=== PATIENT | female | born 1990 | race Caucasian/White ===

== ENCOUNTER → 2020-09-11 00:58 | Outpatient (CLI) | payer OTHER, SELFPAY ==
[2020-09-11 19:48] LABS: SARS-CoV-2 RNA PCR Negative
== END ==
PROVIDERS: Anesthesiology; PCP Nurse Practitioner Psychiatric/Mental Health; Visit Provider Obstetrics & Gynecology
DX: Z01.812 Encounter for preprocedural laboratory examination (principal); Z20.822 Contact with and (suspected) exposure to COVID-19
CPT/HCPCS: C9803; U0003; U0005

== ENCOUNTER 2020-09-15 00:43 | Day surgery (SDC) | payer OTHER, SELFPAY ==
[2020-09-08 14:38] VITALS: BMI 31.1
[2020-09-15] VITALS (7 sets, daily range): BP systolic 100–131; BP diastolic 61–80; PULSE 62–102; RESP 12–20; TEMP 36.1–36.2; O2SAT 100
[2020-09-15] MEDS: ACETAMINOPHEN 500 MG TABLET 1000 MG PO (06:49)
[2020-09-15] MEDS: LACTATED RINGERS 1,000 ML 30 ML IV CONT ×2 (06:55→08:11)
[2020-09-15] MEDS: KETOROLAC 15 MG/ML VIAL (*BKC) IV PUSH (07:00)
--- NOTE | 2020-09-15 07:04 | WPDANESEPPF ---
Anes - Initial Pre Proc Eval Procedure: Operation Date: 09/15/20 07:30 Proposed Procedures p Laparoscopic Bilateral Tubal Ligation With Fulguration - Jeferson Avendano MD Date/Time: 09/15/20 07:04 Surgeon: Jeferson Avendano MD Pre Op Diagnosis: Desires Sterilization Patient Data Age: 29 Gender: F Height: 5 ft 8 in Weight: 93 kg Allergies Allergy/AdvReac Type Severity Reaction Status Date / Time latex Allergy Severe Hives Verified 09/15/20 06:17 Home Medications Medication Instructions Recorded Confirmed Type sertraline 50 mg PO HS 09/08/20 09/15/20 History Patient hx anesthesia problems: none Family hx anesthesia problems: none PMF Past Medical History Medical History Anxiety Social History Social History Smoking packs per day: 1 Smoking cigarettes per day: 20.0 Years smoked: 10 Smoking pack-years: 10.00 Smoking status: Former smoker Tobacco type: cigarettes Second hand tobacco smoke exposure: No Smoking end date: 07/09/16 Alcohol intake: current Drinks per week: 1 Substance use: never Living arrangements: with family Spiritual care concerns: No Anes - Eval Final PreProcedure Day of Procedure 09/15/20 07:04 Patient weight: obese Heart: regular rate and rhythm Lungs: clear to auscultation Airway: Mallampati scale class II Neurological: alert and oriented Last oral intake: >/= 8 hours ASA classification: II Emergent: no Anesthetic plan: proceed Anesthesia type and monitoring: general ETT and standard monitoring Informed Consent: The patient's anesthetic plan and its attendant risks and benefits were discussed with the patient/family/POA. Questions were solicited and answers provided to the satisfaction of the patient/family/POA.
[2020-09-15] MEDS: SCOPOLAMINE 1.5 MG PATCH TRANSDERM (07:09)
--- NOTE | 2020-09-15 07:20 | SUR.PREOP ---
0720-UP TO BR TO VOID,
--- NOTE | 2020-09-15 07:20 | WPDHPUPDATE1 ---
History and Physical Update Update Date/Time: 09/15/20 07:20 History and Physical has been reviewed, including an updated exam of the patient. There are NO changes in the patient's condition. Risks, benefits, and alternatives have been discussed and questions answered. Patient agrees to proceed with procedure.
--- NOTE | 2020-09-15 08:05 | PM.PROC ---
Procedure Note - Detailed Date of procedure: 09/15/20 Pre-op diagnosis: Desires Sterilization Post-op diagnosis: same Procedure performed: Laparoscopic bilateral tubal ligation Description of procedure: Patient was taken the operating room. She has prepped draped in the dorsal lithotomy position after induction of general anesthesia. A 5 mm abdominal incision was made in left upper quadrant of the abdomen with scalpel. A 5 mm trocars inserted the intra-abdominal cavity under direct visualization of the scope. Pneumoperitoneum was achieved. A 5 mm periumbilical incision was made using a scalpel on the abdominal scan. A 5 mm trocar was inserted the intra-abdominal cavity under visualization of the scope. The fallopian tube was grasped with the bipolar cautery in the ampullary region. It was completely desiccated in a 1.5 cm area of the fallopian tube. This was performed in identical fashion on the contralateral side. The instruments were withdrawn. The pneumoperitoneum was reduced. The trocars were removed. The skin was closed with subcuticular 4 Monocryl. This incisions were covered with Dermabond. The patient tolerated the procedure well. She was taken to recover room in stable condition. Anesthesia: GETA Surgeon: Jeferson Avendano MD Estimated blood loss (mL): 10 Drains: No Packing: No Pathology: none sent Complications: No immediate complications Condition: stable Disposition: PACU Findings: Normal female pelvic anatomy.
== END 2020-09-15 09:40 | disposition home or self-care (01) ==
PROVIDERS: PCP Nurse Practitioner Psychiatric/Mental Health; Visit Provider Obstetrics & Gynecology
PROC: (CPT 58671; principal; 2020-09-15 07:30)
DX: Z30.2 Encounter for sterilization (principal); F41.9 Anxiety disorder, unspecified; Z87.891 Personal history of nicotine dependence; E66.9 Obesity, unspecified; Z68.29 Body mass index [BMI] 29.0-29.9, adult
CPT/HCPCS: 58670; A9270; J0330; J1100; J1885; J2250; J2405; J2704; J3010; J7120

== ENCOUNTER 2020-11-04 07:57 | Outpatient (CLI) | payer OTHER, SELFPAY ==
--- NOTE | ~2020-11-04 | US_ITS ---
EXAMINATION: US pelvic complete w TV DATE: 11/04/2020 08:33 INDICATION: Bilateral pelvic pain Comparison:No prior studies for comparison. TECHNIQUE: Multiple transabdominal and endovaginal sonographic images of the pelvis performed. FINDINGS: The uterus measures 9.7 x 4.4 x 6.6 mm. There is a small hypoechoic mass measuring 8 mm pos terior myometrium, likely a small fibroid. There are nabothian cysts. The endometrial complex measure s 12 mm. The right ovary measures 3.4 x 2.9 x 2.6 cm and the left ovary measures 2.7 x 1.7 x 1.7 cm. There is 1.9 cm ovarian cyst. There are small follicles in each ovary. Normal doppler signal in both ovaries. There is no free fluid in the pelvis. There are no abnormal masses seen on either side. IMPRESSION: 1. Endometrial thickening measuring 12 mm. 2: Small 8 mm uterine fibroid. 3: Right ovarian cyst measuring 1.9 cm. Reviewed, dictated and finalized at location B.
== END 2020-11-04 07:58 | disposition home or self-care (01) ==
LOC: CHSIMG 07:59
PROVIDERS: PCP Nurse Practitioner Psychiatric/Mental Health; Visit Provider Nurse Practitioner Psychiatric/Mental Health
DX: R10.2 Pelvic and perineal pain (principal)
CPT/HCPCS: 76830; 76856